=== PATIENT | female | born 2005 | race Caucasian/White ===

== ENCOUNTER 2024-04-29 10:12 | Emergency (ER) | payer OTHER ==
[~2024-04-29] VITALS: Ht 154.9 cm; Wt 68.0 kg
[2024-04-29 10:55] LABS: BASOPHILS ABSOLUTE AUTO 0.03 K/mm3 (0.00-0.23); BASOPHILS PERCENT AUTO 0 % (0-2); EOSINOPHILS ABSOLUTE AUTO 0.03 K/mm3 (0.00-0.68); EOSINOPHILS PERCENT AUTO 0 % (0-6); Hematocrit 35.1 % (33.0-51.0); Hemoglobin 11.8 g/dL (11.5-16.0); IMMATURE GRAN ABSOLUTE AUTO 0.15 K/mm3 (0.00-0.10); IMMATURE GRAN PERCENT AUTO 1 % (0-1); LYMPHOCYTES ABSOLUTE AUTO 1.92 K/mm3 (0.84-5.20); LYMPHOCYTES PERCENT AUTO 16 % (21-46); MONOCYTES ABSOLUTE AUTO 0.69 K/mm3 (0.16-1.47); MONOCYTES PERCENT AUTO 6 % (4-13); Mean Corpuscular HGB 32.3 pg (26.0-34.0); Mean Corpuscular HGB Conc 33.6 g/dL (31.5-36.5); Mean Corpuscular Volume 96 fL (80-100); Mean Platelet Volume 9.8 fL (9.1-12.4); NEUTROPHILS ABSOLUTE AUTO 9.32 K/mm3 (1.96-9.15); NEUTROPHILS PERCENT AUTO 77 % (41-73); Platelet Count 212 K/mm3 (150-400); RDW Standard Deviation 45.8 fL (35.1-46.3); Red Blood Cell Count 3.65 M/mm3 (3.80-5.20); White Blood Cell Count 12.14 K/mm3 (4.00-11.30)
[2024-04-29 11:20] LABS: Albumin, Blood 3.1 g/dL (3.4-5.0); Albumin/Globulin Ratio 0.7 (0.8-1.8); Bilirubin, Total 1.1 mg/dL (0.1-1.0); Bun/Creatinine Ratio 6.6 (12.0-20.0); Calcium, Blood 9.4 mg/dL (8.5-10.1); Creatinine, Blood 0.61 mg/dL (0.40-1.00); Globulin, Blood 4.4 g/dL (2.2-4.0); Potassium, Blood 3.2 mmol/L (3.5-5.5); Total Protein, Blood 7.5 g/dL (6.4-8.2)
[2024-04-29] MEDS ORDERED: NS 1,000 ML IV SCH (11:40)
[2024-04-29] MEDS ORDERED: Ondansetron HCl 2 MG / ML 2ML Vial IV ONE (11:40)
[2024-04-29] MEDS ORDERED: VENLAFAXINE HCL75 M2 PO (11:56)
[2024-04-29] MEDS ORDERED: PROMETHAZINE12.5 M1 PO (11:57)
--- NOTE | 2024-04-29 12:01 | NUR ---
04/29/24 1200 pt being seen in ER for several day sof N/V; requested by ER dr to get NST; fetus is very active
[2024-04-29 13:13] LABS: Source, Urine Clean Catch
[2024-04-29 13:15] LABS: Influenza A, PCR NEGATIVE (NEGATIVE); Influenza B, PCR NEGATIVE (NEGATIVE); Resp Syncytial Virus, PCR NEGATIVE (NEGATIVE); SARS-Cov-2 (COVID-19) PCR, MMC NEGATIVE (NEGATIVE)
[2024-04-29 13:16] LABS: Appearance, Urine Clear (Clear); Bilirubin, Urine Neg (Neg); Blood, Urine Neg (Neg); Color, Urine Yellow (P-Yellow); Glucose Qualitative, Urine Neg (Neg); Ketones, Urine 4+ (Neg); Leukocyte Esterase, Urine 1+ (Neg); Nitrite, Urine Neg (Neg); Protein, Urine 2+ (Neg); Specific Gravity, Urine 1.015 (1.003-1.022); Urobilinogen, Urine NORM (Normal)
[2024-04-29 13:31] LABS: Red Blood Cells, Urine 0-2 /hpf (0-2); Squamous Epithelial Cells Few /hpf (Few)
[2024-04-29 13:32] LABS: Bacteria Mod /hpf
[2024-04-29] MEDS ORDERED: Nitrofurantoin/Nitrofuran Mac 100 MG Cap PO ONE (13:40)
[2024-04-29] MEDS ORDERED: NITR100CA PO (13:54)
[2024-04-29] MEDS ORDERED: RX Prepack 2 Tabs Ondansetron ODT 4MG UD ONE (13:55)
== END 2024-04-29 14:09 | disposition home or self-care (01) ==
LOC: ER 10:12
PROVIDERS: Physician Assistant; Student in an Organized Health Care Education/Training Program
DX: O23.43 Unspecified infection of urinary tract in pregnancy, third trimester (principal); O21.9 Vomiting of pregnancy, unspecified; Z3A.30 30 weeks gestation of pregnancy
CPT/HCPCS: 0241U; 59025; 80053; 81001; 85025; 87086; 96374; 99283-25; A9270; J2405; J7030